=== PATIENT | female | born 1980 | race American Indian/Alaskan Native ===

== ENCOUNTER 2016-06-19 09:04 | Outpatient (CLI) | payer OTHER ==
--- NOTE | 2016-06-19 09:49 | Mammography Report ---
BILATERAL DIGITAL SCREENING MAMMOGRAM with CAD: 06/19/16 09:04:00 CLINICAL: 35-year-old for baseline screening. FINDINGS: The breasts are heterogeneously dense, which may obscure small masses. Two separate groups of segmental left upper outer calcifications require additional imaging.No associated mass or architectural distortion.The right breast is negative. IMPRESSION: Left upper outer calcifications requiring further workup. BI-RADS CATEGORY: 0 -- Additional Imaging Evaluation Required RECOMMENDATION: Recall for left mediolateral and spot magnification ML and CC views. ACR BI-RADS MAMMOGRAPHIC CODES: 0 = Needs additional imaging evaluation; 1 = Negative; 2 = Benign; 3 = Probably benign; 4 = Suspicious; 5 = Malignant; 6 = Known biopsy-proven malignancy COMMENT: 1. Dense breast tissue, i.e., adenosis, fibrocystic changes, etc., may obscure an underlying neoplasm. 2. Approximately 10% of cancers are not detected with mammography. 3. A negative mammography report should not delay biopsy if a clinically suspicious mass is present. COMMENT: Patient follow-up letters are generated via our [employer] application.
== END 2016-06-19 09:05 | disposition home or self-care (01) ==
LOC: SPVWC 09:04
PROVIDERS: ATTEND Family Medicine
DX: Z12.31 Encounter for screening mammogram for malignant neoplasm of breast (principal)
CPT/HCPCS: 77067; G0202

== ENCOUNTER 2016-07-11 14:06 | Outpatient (CLI) | payer OTHER ==
--- NOTE | 2016-07-11 14:54 | Mammography Report ---
LEFT DIGITAL DIAGNOSTIC MAMMOGRAM : 07/11/16 14:06:00 CLINICAL: Recalled for calcifications. COMPARISON:06/19/16 screening mammogram FINDINGS: ML and ML and CC magnification views were performed and demonstrate two groups of suspicious pleomorphic segmental calcifications in the upper-outer quadrant. The calcifications are by approximately 4 cm on the lateral view and the epicenters of the two groups are 6 cm apart. No associated mass or architectural distortion. IMPRESSION: 2 groups of suspicious pleomorphic segmental calcifications in the upper-outer quadrant of the left breast.Recommend stereotactic needle core biopsy of the left breast at 2 sites. I discussed the findings and the recommendation for stereotactic needle biopsy of the left breast at 2 sites with the patient at the time of the examination. BI-RADS CATEGORY: 4--Suspicious ACR BI-RADS MAMMOGRAPHIC CODES: 0 = Needs additional imaging evaluation; 1 = Negative; 2 = Benign; 3 = Probably benign; 4 = Suspicious; 5 = Malignant; 6 = Known biopsy-proven malignancy COMMENT: 1. Dense breast tissue, i.e., adenosis, fibrocystic changes, etc., may obscure an underlying neoplasm. 2. Approximately 10% of cancers are not detected with mammography. 3. A negative mammography report should not delay biopsy if a clinically suspicious mass is present. COMMENT: Patient follow-up letters are generated by our [employer] application.
== END 2016-07-11 14:07 | disposition home or self-care (01) ==
LOC: SPVWC 14:06
PROVIDERS: ATTEND Family Medicine
DX: R92.1 Mammographic calcification found on diagnostic imaging of breast (principal)
CPT/HCPCS: G0206-LT

== ENCOUNTER 2016-07-25 13:13 | Outpatient (CLI) | payer OTHER ==
--- NOTE | 2016-07-25 16:02 | Mammography Report ---
STEREOTACTIC VACUUM ASSISTED BIOPSY WITH CLIP PLACEMENT TWO SITES LEFT BREAST: 07/25/16 13:13:00 CLINICAL: 2 suspicious groups of upper outer calcifications. COMPARISON:07/11/16 FINDINGS: Consent for the procedure was obtained. The more superior and lateral group of calcificationswas targeted with stereotactic guidance. The skin was prepped with Betadine and anesthetized with 1% lidocaine. 2% lidocaine with epinephrine was injected for deeper anesthesia. 8 gauge Mammotome biopsy was performed from a CC from above approach through a small dermatotomy. Prefire and post-fire images demonstrated satisfactory positioning of the probe. Samples were obtained around the clock face. A specimen radiograph confirmed satisfactory sampling with removal of associate financial representative calcifications. A MammoMark 8 clip was placed at the biopsy site and the placement was confirmed with a radiograph. The more inferior group of calcificationswas targeted with stereotactic guidance. The skin was prepped with Betadine and anesthetized with 1% lidocaine. 2% lidocaine with epinephrine was injected for deeper anesthesia. 8 gauge Mammotome biopsy was performed from a CC from above approach through a small dermatotomy. Prefire and post-fire images demonstrated satisfactory positioning of the probe. Samples were obtained around the clock face. A specimen radiograph showed no calcifications. The probe was repositioned and additional samples were obtained. However, the second specimen also showed no calcifications. A Biomarc 8 clip was placed at the biopsy site and the placement was confirmed with a radiograph. Hemostasis was achieved with minimal pressure after removal of the probes. Sterile dressings were applied. The patient tolerated the procedure well and there were no apparent complications. A 2 view mammogram demonstrated concordant position of of the more superior and lateral clip. The second clip is approximately 2.5 cm superior to the second group of calcifications. IMPRESSION: Uncomplicated bilateral stereotactic biopsy with clip placement two sites left breast.The first sample site is concordant and calcifications were successfully removed. Discordance at the second sample site with no calcifications in the second sample.
--- NOTE | 2016-07-25 16:06 | Mammography Report ---
LEFT DIGITAL DIAGNOSTIC MAMMOGRAM: 07/25/16 13:13:00 CLINICAL: For clip placement immediately status post stereotactic biopsy at 2 sites. COMPARISON:07/11/16 FINDINGS: Biopsy clips are identified at these sites. Sample site 1 clip is concordant and is more lateral and superior.Sample site 2 clip is approximately 2.5 cm superior to the second group of calcifications. IMPRESSION: Concordant clip placement at sample site 1 a discordant sampling at site 2. BI-RADS CATEGORY: 4--Suspicious Pathology pending.
== END 2016-07-25 13:14 | disposition home or self-care (01) ==
LOC: SPVWC 13:13
PROVIDERS: ATTEND Family Medicine
DX: R92.1 Mammographic calcification found on diagnostic imaging of breast (principal)
CPT/HCPCS: 19081; 19082; A4648; G0206; 88305

== ENCOUNTER 2016-08-14 12:32 | Outpatient (CLI) | payer OTHER ==
--- NOTE | 2016-08-15 12:56 | Magnetic Resonance Report ---
BILATERAL BREAST MRI WITHOUT AND WITH CONTRAST: 08/14/16 12:32:00 CLINICAL: Newly diagnosed left breast cancer. 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 The second biopsy was negative but the sample site was discordant with the previous mammogram. COMPARISON:06/19/16 screening mammogram and 07/11/16 left diagnostic mammogram.. TECHNIQUE: Axial 1.0-mm T1 without, axial high resolution 2.0-mm T2 and axial 1.0-mm dynamic Vibrant high-resolution postcontrast T1 fat saturation sequences on a 1.5 Melinda magnet. The examination was performed with an 8 channel dedicated Sentinelle breast coil. Post processing with CAD and subtraction was performed on an [employer] workstation. 20 cc of Multihance was injected without incident for the contrast portion of the exam. Consent was obtained prior to the administration of the contrast. FINDINGS: Right: Moderate background parenchymal enhancement. No mass or suspicious enhancement. No suspicious lymph nodes. Left: Moderate background parenchymal enhancement. No mass or suspicious enhancement. No suspicious lymph nodes. 2 biopsy clips are identified in the upper outer quadrant. A 1.2 cm hematoma is identified at the second sample site. IMPRESSION: Negative study with no MRI evidence of tumor. RIGHT BI-RADS 1 -- Negative LEFT BI-RADS 6 -- Known Cancer
== END 2016-08-14 12:33 | disposition home or self-care (01) ==
LOC: SPVIMAG 12:32
PROVIDERS: ATTEND Surgery
DX: C50.912 Malignant neoplasm of unspecified site of left female breast (principal); N64.89 Other specified disorders of breast
CPT/HCPCS: 0159T; A9577; C8908; 77059

== ENCOUNTER 2016-08-29 09:12 | Day surgery (SDC) | payer OTHER ==
[~2016-08-29 09:12] MED LIST: MARCAINE 0.25% INFILTRATI ONE; WATER FOR IRRIG STERILE IR ONE
--- NOTE | 2016-08-29 09:51 | Anesthesia Consultation ---
Anesthesia Consult and Med Hx Date of service: 08/29/16 - Airway Anesthetic Teeth Evaluation: Good (some missing) ROM Head & Neck: Adequate Mental/Hyoid Distance: Adequate Mallampati Class: Class II Intubation Access Assessment: Probably Good - Pulmonary Exam CTA: Yes - Cardiac Exam Cardiac Exam: RRR - Pre-Operative Health Status ASA Pre-Surgery Classification: ASA2 Proposed Anesthetic Plan: General - Other Systems Hx Cancer: Yes (LEFT BREAST, DX: 07/2016)
--- NOTE | 2016-08-29 09:53 | Anesthesia Day of Surgery ---
Anesthesia Day of Surgery - Day of Surgery Patient Examined: Yes Patient H&P Reviewed: Yes Patient is NPO: Yes
[2016-08-29] MEDS ORDERED: NACL BACTERIOSTATIC INFILTRATI ONE (09:58)
[2016-08-29] MEDS ORDERED: VERSED IV NR (10:00)
[2016-08-29] MEDS ORDERED: ANCEF/STERILE WATER 2 GM/20 ML IV NR (10:00)
[2016-08-29] MEDS ORDERED: LACTATED RINGERS 1,000 ML IV SCH (10:00)
[2016-08-29] MEDS ORDERED: PEPCID PO NR (10:00)
[2016-08-29] MEDS ORDERED: XYLOCAINE 1% 20 mL ONE (10:20)
--- NOTE | 2016-08-29 10:32 | Short Stay Summary ---
Short Stay Documentation Date of service: 08/29/16 - History H&P: obtained from office - Allergies and Medications Current Medications: Allergies Iodinated Contrast Media - IV Dye Allergy (Verified 08/24/16 10:11) Hives, itching, swelling, throat closes Home Medications Medication Instructions Recorded Confirmed Last Taken Type Loratadine [Claritin] 10 mg PO DAILY 08/24/16 08/29/16 2 Weeks Ago History Excedrin 2 tab PO PRN PRN 08/29/16 08/29/16 08/26/16 History HYDROcodone/APAP 5-325 [[place] 1 each PO Q6HR PRN #30 tablet 08/29/16 Unknown Rx 5/325] Active Medications Cefazolin Sodium (Ancef/Sterile Water 2 Gm/20 Ml) 2 gm IV PREOP NR Stop: 08/29/16 23:59 Famotidine (Pepcid) 20 mg PO PREOP NR Stop: 08/29/16 23:59 Lactated Ringer's (Lactated Ringers) 1,000 mls @ 42 mls/hr IV DIRECT MARLYN Midazolam HCl (Versed) 2 mg IV PREOP NR Stop: 08/29/16 23:59 - Brief post op/procedure progress note Date of procedure: 08/29/16 Pre-op diagnosis: Left breast cancer of the upper outer quadrant and suspicious microcalcific Post-op diagnosis: same Procedure: Left breast needle localization partial mastectomy and left breast needle localization excisional biopsy Anesthesia: GETA Findings: Wire and clip present within partial mastectomy; suspicious microcalcifications present within excisional biopsy Surgeon: JASON WEATHERS Estimated blood loss: minimal Pathology: list (left partial mastecomy and excisional biopsy) Specimen disposition: to lab (left partial mastectomy and left excisional biopsy ) Condition: stable - Disposition Condition at discharge: Good Disposition: DISCHARGED TO HOME OR SELFCARE Short Stay Discharge Plan Activity: other (no heavy lifting) Diet: regular Wound: other (keep incision clean and dry; may shower in 24 hours; no baths, pools or lakes; do not rub or scrub incision) Follow up with: CHERYL ZAFAR MD [Primary Care Provider] - 7 Days JASON WEATHERS MD [Staff Physician] - 7 Days Prescriptions: HYDROcodone/APAP 5-325 [[place] 5/325] 1 each PO Q6HR PRN #30 tablet PRN Reason: Pain
--- NOTE | 2016-08-29 10:36 | Operative Report ---
Operative Report Operative Report: Date of procedure: 08/29/2016 Pre-operative diagnosis: Left breast cancer of the upper outer quadrant and suspicious microcalcifications of the upper outer quadrant Post-operative diagnosis: Same Procedure name(s): Complex left breast needle localization partial mastectomy and left breast needle localization excisional biopsy of suspicious microcalcifications of the upper outer quadrant Surgeon: Tiny Collins M.D. Anesthesia: Gen. Findings:Radiograph specimen of partial mastectomy with wire, clip and suspcious microcalcifications present; left breast excisional biopsy with wire and suspicious microcalcifications present Complications: None Disposition: PACU in good condition Indications for operative procedure: This is a 35-year-old premenopausal -[place] lady recently diagnosed with left breast cancer of the upper outer quadrant. Patient recently underwent stereotactic breast biopsy of suspicious area of upper outer quadrant left breast with microcalcifications; more superior and laterally findings of DCIS ER/WI positive and second biopsy site of calcifications lateral but more inferior with findings of benign microcalcifications. Radiology recommendations were to proceed with an excisional biopsy of second biopsy site of benign calcifications given concern for suspicion for malignancy. Patient was consented for the above procedure. Procedure in detail: Radiology placed wires prior to going back to the operating room, wire 1 localizing known breast cancer and wire 2 localizing suspicious microcalcifications. The patient was taken to the operating room and was laid supine. Gen. anesthesia was administered without any complications. The left breast was prepped and draped in the normal sterile operative fashion. Timeout was performed. Both left breast wires were identified of the left upper outer quadrant. A skin incision was first made with a 15 blade knife and dissection taken down to the subcutaneous tissues. First began with performing of the needle localization partial mastectomy of known breast cancer. The wire was removed from the skin. Then proceeded raising of superior flap followed by superior flap, inferior and medial flap. The area of concern was removed with the aid of the Bovie cautery and appropriately marked and sent to pathology and radiology. There was breast tissue caudally that was of concern with additional caudal margin obtained and appropriately marked and sent to pathology. Radiograph specimen with wire, clip and suspicious calcifications present. Began with the excisional biopsy of suspicious microcalcifications. Inferior flap was created with removal of the wire from the skin. Then proceed with the raising of the superior flap, lateral flap and medial flap. Area of concern was appropriately removed. Specimen was appropriately marked. Radiograph specimen with wire and suspicious microcalcifications present. Hemostasis was obtained with the aid of Bovie cautery. It was noted that after the excisional biopsy was performed there was no bridging of tissue of both excision sites and breast cavity was uniform given additional caudal margin taken from partial mastectomy (most caudal margin that was taken from the partial mastectomy would be the cephalad margin from the excisional biopsy). The procedure then began with oncoplastic reconstruction with mobilizing of the tissues to ensure a good cosmetic result. The Bovie cautery was used to mobilize the tissues and the subcutaneous tissues were then approximated and closed with interrupted 3-0 Vicryl and the skin was brought together and closed using a running 4-0 Monocryl with skin affix. The patient tolerated surgery very well and she was awakened from anesthesia without any complications and transported to PACU in good condition. :
[2016-08-29] MEDS ORDERED: DILAUDID ONE (10:53)
[2016-08-29] MEDS ORDERED: DIPRIVAN 10 MG/ML IV ONE (10:53)
[2016-08-29] MEDS ORDERED: DECADRON ONE (12:30)
[2016-08-29] MEDS ORDERED: ZOFRAN ONE (12:31)
--- NOTE | 2016-08-29 13:14 | Mammography Report ---
Left breast needle localization procedure x2. History: Biopsy proven breast cancer with 2 separate areas of microcalcifications. Procedure: 2 localization were performed. Mammographic guidance was used to place a hookwire site of 2 biopsy clips. The more anterior of the 2 clips was located 2.5 cm above the area of interest and therefore the needle placement was localized more inferior to the clip. Satisfactory localization was accomplished. The patient tolerated the procedure well clinically and was sent to the OR in satisfactory condition.
--- NOTE | 2016-08-29 13:49 | Mammography Report ---
Specimen radiograph. Findings: A single specimen radiograph confirms the presence of numerous microcalcifications adjacent to the hookwire.
--- NOTE | 2016-08-29 13:50 | Mammography Report ---
Specimen radiograph. Findings: The second of 2 specimen radiographs confirms the presence of numerous sales representative supervisor microcalcifications and a single biopsy clip.
[2016-08-29] MEDS ORDERED: XYLOCAINE MPF 2% ONE (14:01)
--- NOTE | 2016-08-29 15:06 | Post Anesthesia Evaluation ---
- Post Anesthesia Evaluation Patient Participated: Yes Airway Patent: Yes Stable Respiratory Function: Yes Nausea/Vomiting: No Temp > 96.8F: Yes Pain Manageable: Yes Adequeate Hydration: Yes Anesthesia Complications: No Block Receding Appropriately: Not Applicable Patient on Ventilator: No
[2016-08-29 19:13] VITALS: BP 102/60
== END 2016-08-29 16:37 | disposition home or self-care (01) ==
LOC: OR 09:12
PROVIDERS: ATTEND Surgery
DX: C50.412 Malignant neoplasm of upper-outer quadrant of left female breast (principal); Z80.3 Family history of malignant neoplasm of breast
CPT/HCPCS: 19281; 19282; 19301; 76098; 81025; 88307; J0690; J1100; J1170; J2250; J2405; J2704; J7120

== ENCOUNTER 2016-10-17 06:23 | Observation (INO) | payer OTHER ==
[2016-10-16 08:49] LABS: Hematocrit 38.4 % (30.3-42.9); Hemoglobin 12.6 gm/dl (10.1-14.3); Mean Corpuscular HGB Conc 33 % (30-34); Mean Corpuscular Hemoglobin 28 pg (28-32); Mean Corpuscular Volume 85 fl (79-97); Platelet Count 343 K/mm3 (140-440); Red Blood Count 4.52 M/mm3 (3.65-5.03); Red Cell Distribution Width 14.8 % (13.2-15.2); White Blood Count 4.7 K/mm3 (4.5-11.0)
[2016-10-16 08:55] LABS: Bilirubin,Urine NEG (Negative); Blood,Urine LG (Negative); Ketones,Urine NEG (Negative); Leukocyte Esterase,Urine NEG (Negative); Nitrite,Urine NEG (Negative); Protein,Urine <15 mg/dL mg/dL (Negative); Urobilinogen,Urine < 2.0 mg/dL (<2.0)
[2016-10-16 09:00] LABS: INR 0.95 (0.87-1.13)
[2016-10-16 09:01] LABS: Partial Thromboplastin Time 30.9 Sec. (24.2-36.6)
[2016-10-16 09:25] LABS: Alanine Aminotransferase 18 units/L (7-56); Albumin 3.9 g/dL (3.9-5); Albumin/Globulin Ratio 1.1 %; Alkaline Phosphatase 68 units/L (35-129); Anion Gap 17 mmol/L; BUN/Creatinine Ratio 17.14; Blood Urea Nitrogen 12 mg/dL (7-17); Calcium 8.9 mg/dL (8.4-10.2); Carbon Dioxide 24 mmol/L (22-30); Chloride 101.1 mmol/L (98-107); Glucose 98 mg/dL (65-100); Sodium 138 mmol/L (137-145); Total Protein 7.4 g/dL (6.3-8.2)
[~2016-10-17 06:23] MED LIST changes: -MARCAINE 0.25% INFILTRATI ONE; +NACL 0.9% 1000 ML 1,000 ML IV SCH; +NACL 0.9% 500 ML 500 ML IV ONE; +NEURONTIN PO NR; +PEPCID PO NR; +SUBLIMAZE IV ONE; +VERSED IV NR; -WATER FOR IRRIG STERILE IR ONE
[2016-10-17] MEDS ORDERED: ANCEF/STERILE WATER 2 GM/20 ML IV NR (06:35)
[2016-10-17] MEDS ORDERED: LOVENOX SUB-Q NR (06:36)
[2016-10-17] MEDS ORDERED: TRANSDERM-SCOP TD NR (06:37)
[2016-10-17] MEDS ORDERED: XYLOCAINE MPF 2% ONE (06:48)
[2016-10-17] MEDS ORDERED: ROBINUL ONE (06:49)
[2016-10-17] MEDS ORDERED: ZEMURON IV ONE (06:49)
[2016-10-17] MEDS ORDERED: DIPRIVAN 10 MG/ML IV ONE (06:50)
[2016-10-17] MEDS ORDERED: DILAUDID ONE (06:51)
[2016-10-17] MEDS ORDERED: NACL BACTERIOSTATIC INFILTRATI ONE (07:15)
--- NOTE | 2016-10-17 07:19 | Anesthesia Day of Surgery ---
Anesthesia Day of Surgery - Day of Surgery Patient Examined: Yes Patient H&P Reviewed: Yes Patient is NPO: Yes
--- NOTE | 2016-10-17 07:20 | Anesthesia Consultation ---
Anesthesia Consult and Med Hx - Airway Anesthetic Teeth Evaluation: Good ROM Head & Neck: Adequate Mental/Hyoid Distance: Adequate Mallampati Class: Class II Intubation Access Assessment: Probably Good - Pulmonary Exam CTA: Yes - Cardiac Exam Cardiac Exam: RRR - Pre-Operative Health Status ASA Pre-Surgery Classification: ASA2 Proposed Anesthetic Plan: General - Pulmonary Hx Smoking: No Hx Sleep Apnea: No - Central Nervous System Hx Psychiatric Problems: No - Other Systems Hx Cancer: Yes (LEFT BREAST, DX: 07/2016) Hx Obesity: Yes - Additional Comments Anesthesia Medical History Comments: NPO after MN. No prior anesthesia problems. BMI 41.7
[2016-10-17] MEDS ORDERED: BACITRACIN ONE (07:39)
[2016-10-17] MEDS ORDERED: NACL 0.9% 500 ML 500 ML ONE ×2 (07:39→07:49)
[2016-10-17] MEDS ORDERED: GARAMYCIN ONE (07:49)
[2016-10-17] MEDS ORDERED: ANCEF ONE (07:49)
[2016-10-17] MEDS ORDERED: ZOFRAN ONE (08:00)
[2016-10-17] MEDS ORDERED: ZOFRAN IV PRN ×2 (08:00→11:52)
[2016-10-17] MEDS ORDERED: NACL 0.9% 1000 ML 1,000 ML ONE (08:33)
[2016-10-17] MEDS ORDERED: ANCEF IV ONE (08:40)
[2016-10-17] MEDS ORDERED: BACITRACIN IR ONE (08:43)
[2016-10-17] MEDS ORDERED: NACL 0.9% 500 ML IRRIGATION ONE (08:44)
[2016-10-17] MEDS ORDERED: DECADRON ONE (08:51)
[2016-10-17] MEDS ORDERED: NACL 0.9% 1000 ML IV ONE (09:05)
--- NOTE | 2016-10-17 11:18 | Operative Report ---
Operative Report Operative Report: Date of procedure:October 17, 2016 Pre-operative diagnosis: Left breast cancer of the upper outer quadrant Post-operative diagnosis:Same Procedure name(s): Left skin sparing total mastectomy and sentinel lymph node biopsy Surgeon: Tiny Collins MD Glass Worker: Mrs. Krueger Anesthesia: General Findings: Prior left breast partial mastectomy incision present with scar, 1 SLN and negative for malignancy on frozen section Complications: None EBL: Minimal Disposition: Placement of tissue autism specialist by Dr. 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 Patient underwent a left partial mastectomy and left needle localization excisional biopsy in August with findings of extensive ductal carcinoma in situ with positive margins and recommendation for mastectomy. Patient wished to proceed with the above procedure. Procedure in detail: The patient was taken to the operating room and was laid supine. General anesthesia was administred without any complications. The left nipple was injected with radioisotope. The left breast and axilla were prepped and draped in the normal sterile operative fashion. Gamma probe inserted into the axilla with area of sentinel lymph node identified and appropriately marked. A periareolar skin incision was made for a skin sparing total mastectomy with a 15 blade knife with dissection taken down to the subcutaneous tissues. First began with raising of the superior flap to the level of the clavicle taken down posteriorly to the pectoralis muscle, followed by raising of the medial flap to the level of the sternum taken down posteriorly to the pectoralis muscle. [place] lymph node was identified using the gamma probe and lymph node, adequate exposure was not obtained through the breast incision and a separate skin incision was made in the axilla with a 15 blade knife. Axillary fascia was opened and gamma probe inserted into the axilla, sentinel lymph node identified and was appropriate dissected free. Frozen section with findings negative for malignancy. Additional counts were less than 10% of the highest count. Continued with the raising of the lateral flap to latissimus dorsi muscle posteriorly to the pectoralis muscle followed by raising of the inferior flap to the level of the inframammary fold taken down posteriorly to the pectoralis muscle. The breast was then removed from the pectoralis muscle without incident. A prior breast surgical incisions were identified of the upper outer quadrant. Hemostasis was obtained. Chest wall cavity was irrigated and suctioned. Dr. Mason then proceeded with temporary tissue autism specialist placement.
[2016-10-17] MEDS ORDERED: SODIUM CHLORIDE FLUSH SYRINGE 10 ML IV PRN (11:52)
[2016-10-17] MEDS ORDERED: TYLENOL PO PRN (11:52)
[2016-10-17] MEDS ORDERED: REGLAN PO PRN (11:52)
[2016-10-17] MEDS ORDERED: BENADRYL PO PRN (11:52)
[2016-10-17] MEDS ORDERED: LACTATED RINGERS 1,000 ML IV SCH (12:00)
[2016-10-17] MEDS ORDERED: PERCOCET 5/325 PO PRN (12:01)
--- NOTE | 2016-10-17 12:03 | Operative Report ---
Operative Report Operative Report: DATE OF : 1980 DATE OF PROCEDURE: 10/17/2016 PREOPERATIVE DIAGNOSIS: Acquired Breast Deformity POSTOPERATIVE DIAGNOSIS: Acquired Breast Deformity PROCEDURE PERFORMED: 1. Immediate left breast reconstruction with tissue assistant plant control operator, preparation for second stage 2. Local tissue rearrangement SURGEON: Negin Mason MD RULES EXAMINER: Freddy Urena MD ANESTHESIA: General ESTIMATED BLOOD LOSS: Less than 20 mL COMPLICATIONS: None DRAINS: 15 Malagasy left breast SPECIMENS: None INDICATIONS FOR SURGERY: The patient is a 35 year old female with recent diagnosis of extensive. She had undergo previous lumpectomy that showed extensive disease. She elected to have left unilateral mastectomy with autologous tissue reconstruction. Today is her first stage procedure where we will place a tissue assistant plant control operator after mastectomy in order to preserve the space and skin. Her second stage will be in the next several days where we will proceed with DAISHA flap reconstruction. We will be able to assess the mastectomy skin vascularity in the mean time as well as ascertain her surgical margins. Informed consent was explained to the patient that risks include but are not limited to bleeding, infection, seroma, hematoma, wound deshicence. She understood and wished to proceed. DESCRIPTION OF THE PROCEDURE: The patient was marked in the preop holding area with a circumareolar incision. She was then given lovenox and taken back to the operating room. She was placed supine on the table and general anesthesia was induced. After anesthesia was induced she was prepped and draped in the usual sterile fashion. Time out was then performed. Patient received IV antibiotics prior to surgery. Dr. Collins proceeded with the mastectomy portion of the case. After she was finished, we scrubbed in for the reconstructive portion. I selected a [place] CPX4 550cc tissue assistant plant control operator. This was prepped on the back table and irrigated with triple antibiotic irrigation. I achieved meticulous hemostasis in the breast pocket using bovie cautery. Then the pocket was irrigated with triple antibiotic irrigation. I then filled the assistant plant control operator to 540cc. The assistant plant control operator was placed into the breast pocket. It was sutured in placed using 2-0 vicryls along the implant tabs. I then rearranged the mastectomy skin and back cuts were performed in order to achieve tensionless closure as well as to best preserve the circumareolar incision in order to achieve the best aesthetic outcome for her second stage surgery next week. The total area of rearrangement was 30 cm2. A 15 Malagasy round silicone drain was placed into the left breast. This was sutured in place using a 2-0 silk. Then the incision was closed with interrupted buried 3-0 monocryl as well as running 3-0 monocryl for the subcuticular layer. All sponge, needle counts were correct at the end of the case. Patient tolerated the procedure well. She was straight cathed at the end of the procedure prior to extubation. Patient was extubated and brought to the recovery unit in stable condition.
[2016-10-17] MEDS: DILAUDID IV PRN ×2 (12:07→12:50)
--- NOTE | 2016-10-17 12:09 | Discharge Summary ---
Providers - Providers Date of discharge: 10/18/16 Attending physician: JASON Matias Primary care physician: CHERYL ZAFAR Hospitalization Reason for admission: Post operative management Condition: Good Procedures: Left mastectomy with immediate tissue paymaster of purses reconstruction Hospital course: Uneventful Disposition: DC-01 TO HOME OR SELFCARE - Discharge Diagnoses (1) Breast cancer Status: Acute Qualifiers: Breast location: B Estrogen receptor status: E Patient sex: P Laterality: L Core Measure Documentation - Palliative Care Palliative Care/ Comfort Measures: Not Applicable - Core Measures Any of the following diagnoses?: none - VTE Discharge Requirements Contraindication No Overlap Therapy order at DC: Not Indicated - Acute MD Discharge Requirements Aspirin at discharge: No Reason for no aspirin on DC: Surgical contraindication POP/ARB for LVSD if EF <40%: Not Applicable Beta [place] at discharge: No Reason for no beta [place] on DC: Medical contraindication Statin for LDL = or >100 mg/dl on DC: Not Applicable Reason for no statin on DC: Surgical contraindication - Heart Failure Discharge Requirements POP/ARB for LVSD if EF <40%: Not Applicable - Stroke Discharge Requirements Statin for LDL = or >70 mg/dl on DC: Not Applicable Exam - Constitutional Vitals: Temp Pulse Resp BP Pulse Ox 98.5 F 71 18 108/72 98 10/17/16 07:54 10/17/16 07:54 10/17/16 07:54 10/17/16 07:54 10/17/16 07:54 General appearance: Present: no acute distress, well-nourished - EENT Eyes: Present: PERRL ENT: hearing intact - Neck Neck: Present: supple, normal ROM - Respiratory Respiratory effort: normal - Cardiovascular Rhythm: regular Heart Sounds: Present: S1 & S2 - Extremities Extremities: no ischemia, pulses intact - Abdominal General gastrointestinal: Present: soft, non-tender, non-distended - Integumentary Integumentary: Present: clear, warm - Musculoskeletal Musculoskeletal: strength equal bilaterally - Psychiatric Psychiatric: appropriate mood/affect - Neurologic Neurologic: CNII-XII intact, moves all extremities Plan Activity: other (No heavy lifting or strenous activities) Weight Bearing Status: Full Weight Bearing Diet: regular Wound: keep clean and dry Special Instructions: no heavy lifting Follow up with: CHERYL ZAFAR MD [Primary Care Provider] - 6 Weeks PATI MATIAS MD [Staff Physician] - 10/22/16 Prescriptions: Docusate Sodium [Colace CAP] 100 mg PO BID #60 capsule oxyCODONE /ACETAMINOPHEN [Percocet 5/325 mg] 1 tab PO Q4H PRN #50 tablet PRN Reason: Pain, Moderate (4-6)
--- NOTE | 2016-10-17 13:32 | Post Anesthesia Evaluation ---
- Post Anesthesia Evaluation Patient Participated: Yes Airway Patent: Yes Stable Respiratory Function: Yes Nausea/Vomiting: No Temp > 96.8F: Yes Pain Manageable: Yes Adequeate Hydration: Yes Anesthesia Complications: No
--- NOTE | 2016-10-17 14:35 | Admit Criteria Form ---
Admission Criteria Documentation: AMBULATORY SURGERY EXCEPTION CRITERIA Ambulatory Surgery Exception Criteria ( Place 'X' for any and all applicable criteria): Surgery or procedure performed on ambulatory basis may require inpatient stay for[A] ANY ONE of the following(1)(2)(3)(4)(5)(6)(7)(8)(9): [X] I. A preoperative situation, condition, or finding that warrants inpatient stay as indicated by ANY ONE of the following: [X] a) Inpatient care needed because of severity of a disease or condition rather than the surgery (eg, severe cardiac or respiratory disease, severe infection) (15) (16 ) (17) (18) [] b) Emergent procedure (eg, angioplasty for acute ischemia)(19) [] c) Complex surgical approach or situation as indicated by ANY ONE of the following(3): [] i) Open approach needed instead of usual endoscopic, transcatheter, or other less invasive procedure [] ii) Difficult approach because of previous operation [] iii) Airway monitoring required after open neck procedures(20)(21) [] iv) Large mass requiring unusually extensive dissection [] v) Additional complicating feature requiring inpatient care (eg, drain management)(22(23): [] d) Major surgery in a pt with high anesthetic risk as indicated by ANY ONE of the following (2)(3)(5)(7)(8): [] i) ASA risk class III or higher (severe systemic disease impairing function) [D] [] ii) Advanced age (eg, older than 85 years)(14)(24) [] iii) Symptomatic heart failure(25) [] iv) Symptomatic asthma or COPD(8)(21) [] v) Morbid obesity with hemodynamic or respiratory problems(20)( 21)(26)(27) [] vi) Obstructive sleep apnea(20)(21) [] vii) Former premature infants who are younger than 60 weeks [] viii) High risk for severe postoperative abnormalities (eg, severe postoperative hypocalcemia after parathyroidectomy for severe hyperparathyroidism)(27)( 28) [] ix) Unstable angina(25) [] e) Drug-related risk requiring inpatient stay as indicated by ANY ONE of the following(5)(10)(14)(32)(33) [] i) Procedure requires discontinuing drugs or other therapy (eg , antiarrhythmic medication, antiseizure medication), which necessitates inpatient observation or treatment.(18)(31) [] ii) Major surgery and high risk drug use as indicated by ANY ONE of the following: [] 1) Active abuse of cocaine or similar drug [] 2) Monoamine oxidase inhibitor use [] 3) Other drug identified as posing risk [] f) Inadequate outpatient care situation as indicated by ANY ONE of the following(5)(10)(14)(32)(33) [] i) Patient lives remote from medical facility and procedure has urgent complication potential, and temporary nearby residence cannot be arranged [] ii) Patient will have postprocedure incapacitation and inadequate assistance at home, or alternative level of care cannot be arranged. [] iii) Patient will have long general anesthesia or procedure side effect resolution time, and competent person to stay with patient on first postoperative night at home or alternative level of care cannot be arranged. []iv) Other inadequate outpatient situation that cannot be handled by other means [] II. A perioperative event, condition, or finding that warrants inpatient stay as indicated by ANY ONE of the following (1)(2)(3): [] a) Inadequate physiologic recovery: cardiovascular, respiratory, or hemodynamic status not normal or near preoperative baseline(18) [] b) Hemodynamic instability [] c) Patient not alert with near normal or baseline mental status [] d) Temperature not normal or as expected and not appropriate for outpatient treatment of condition [] e) Ambulatory or appropriate activity level status not yet achieved post procedure [E](34)(35)(36) [] f) Operative site not appropriate (eg, unexpected or excessive drainage or bleeding) [] g) Postoperative effects not resolved or adequately managed (eg, significant pain or vomiting not appropriate for outpatient or next level of care)(10)(12) [] h) Complicating features requiring inpatient care as indicated by ANY ONE of the following(37): [] i) Severe complications of procedure (eg, bowel injury, airway compromise, vascular injury,severe hemorrhage) [] ii) Extensive (eg, dissection far beyond usual scope of procedure ) or prolonged (eg, 120 minutes beyond usual) surgery needed requiring inpatient postoperative care [] iii) Conversion to an open or complex procedure that requires inpatient care (eg, open vs laparoscopic cholecystectomy, abdominal vs vaginal hysterectomy)(38) [] iv) Comorbid condition or test result identified during or post procedure that requires inpatient care (7) [] v) Malignant hyperthermia(30) [] vi) Other complicating feature requiring inpatient care(22)(23) Inpatient stay may be needed until ALL of the following are present (1)(2)(3)(4) (5)(6)(10)(14)(33)(40): []a) Physiologic recovery: cardiovascular, respiratory, and hemodynamic status normal or near preoperative baseline []b) Hemodynamic stability []c) Patient alert, with near normal or baseline mental status []d) Temperature appropriate: patient afebrile or temperature appropriate for outpt treatment of condition []e) Activity level appropriate: ambulatory or appropriate activity level post procedure []f) Operative site appropriate as indicated by ALL of the following: []i) Site dry or with expected drainage []ii) Any blood noted is as expected for procedure. []g) Postoperative effects resolved or managed as indicated by ALL of the following: []i) Pain management appropriate for outpatient (or next level of) care(10) []ii) Minimal nausea and vomiting: if present, successfully treated with oral medication(12) []iii) Headache, dizziness, or drowsiness (if present) are mild. []h) Voiding status acceptable as indicated by ANY ONE of the following: []i) Voiding spontaneously []ii) No voiding but instructions given for follow-up in 6 to 8 hours []iii) Urinary catheter in place, and instructions given for follow-up []i) Complicating features requiring inpatient care manageable at a lower level of care(37) []j) Comorbid conditions manageable at a lower level of care(37) The original [employer] content created by [employer] has been revised. The portions of the content which have been revised are identified through the use of italic text or in bold, and [id number] has neither reviewed nor approved the modified material. All other unmodified content is copyright [employer]. Please see references footnoted in the original [employer] edition 2016 Admission Criteria Met: Yes
[2016-10-17] MEDS: PERCOCET 5/325 PO PRN (16:00)
[2016-10-17] MEDS: MORPHINE IV PRN ×2 (16:20→21:25)
[2016-10-17] MEDS: ANCEF/NS 1 GM/50 ML 1 GM/50 ML BAG IV SCH ×2 (16:30→21:19)
[2016-10-17] MEDS: COLACE PO SCH (22:00)
[2016-10-18] MEDS: PERCOCET 5/325 PO PRN ×3 (01:02→09:47)
[2016-10-18] MEDS: COLACE PO SCH (01:03)
[2016-10-18] MEDS: ANCEF/NS 1 GM/50 ML 1 GM/50 ML BAG IV SCH (05:34)
[2016-10-18] MEDS ORDERED: LOVENOX SUB-Q SCH (10:00)
[2016-10-18 11:51] VITALS: BP 102/59
--- NOTE | 2016-10-18 22:30 | Progress Note ---
Assessment and Plan This is a 35 year old premenopausal lady with multicentric left breast cancer of the upper outer quadrant POD #1 left skin sparing total mastectomy and immediate tissue stone spreader operator placement. No acute events overnight and pain well controlled. 1. Left breast mound incision healing well, skin well perfused. 2. ADRIENNE drain education. 3. OOB to hallway. 4. Pain well controlled. 5. D/C planning for today. Subjective Date of service: 10/18/16 Principal diagnosis: Multicentric left breast cancer Interval history: This is a 35 year old premenopausal lady with multicentric left breast cancer of the upper outer quadrant POD #1 left skin sparing total mastectomy and immediate tissue stone spreader operator placement. Objective - Constitutional General appearance: Present: no acute distress - EENT Eyes: PERRL, EOM intact ENT: hearing intact, clear oral mucosa, dentition normal Ears: bilateral: normal - Neck Neck: supple, normal ROM - Respiratory Respiratory effort: normal Respiratory: bilateral: CTA - Breasts Breasts: other (left breast mound with tissue stone spreader operator in place, incisions clean , dry and intact and healing well; skin well perfused; left axillary bruising noted; ADRIENNE drain to bulb suction) - Cardiovascular Rhythm: regular Extremities: no ischemia, pulses intact, pulses symmetrical, No edema, normal temperature, normal color, Full ROM - Gastrointestinal General gastrointestinal: Present: soft, non-tender, non-distended Rectal Exam: deferred - Genitourinary Female genitourinary: deferred - Integumentary Integumentary: clear, warm, dry - Musculoskeletal Musculoskeletal: strength equal bilaterally - Neurologic Neurologic: CNII-XII intact, moves all extremities - Psychiatric Psychiatric: appropriate mood/affect, intact judgment & insight, memory intact, cooperative - Labs CBC & Chem 7: 10/16/16 08:15 10/16/16 08:15 Labs: Abnormal lab results 10/16/16 Range/Units 08:15 Crossmatch See Detail
== END 2016-10-18 10:00 | disposition home or self-care (01) ==
LOC: OR 06:23 → OB 11:52
PROVIDERS: ADMIT Plastic Surgery; ATTEND Plastic Surgery
DX: C50.412 Malignant neoplasm of upper-outer quadrant of left female breast (principal); N64.89 Other specified disorders of breast; E66.9 Obesity, unspecified; Z80.3 Family history of malignant neoplasm of breast
CPT/HCPCS: 19301; 19357; 36415; 38525; 78800; 80053; 81001; 84703; 85027; 85610; 85730; 86850; 86900; 86901; 86920; 88305; 88307; 88331; 88342; 96365; 96372; 96375; 96376; A9541; C1789; G0378; J0690; J1100; J1170; J1580; J1650; J2250; J2270; J2405; J2704; J7030; J7040; 88309; 88333; J7120

== ENCOUNTER 2017-06-25 08:39 | Outpatient (CLI) | payer OTHER ==
--- NOTE | 2017-06-25 09:06 | Mammography Report ---
RIGHT DIGITAL DIAGNOSTIC MAMMOGRAM with CAD: 06/25/17 08:39:00 CLINICAL: History of left breast cancer status post left mastectomy. COMPARISON:06/19/16 FINDINGS: The breast is heterogeneously dense, which may obscure small masses.No mass, architectural distortion or suspicious calcifications. IMPRESSION: Negative mammogram. BI-RADS CATEGORY: 1 - - Negative RECOMMENDATION: Routine mammographic screening in one year. ACR BI-RADS MAMMOGRAPHIC CODES: 0 = Needs additional imaging evaluation; 1 = Negative; 2 = Benign; 3 = Probably benign; 4 = Suspicious; 5 = Malignant; 6 = Known biopsy-proven malignancy COMMENT: 1. Dense breast tissue, i.e., adenosis, fibrocystic changes, etc., may obscure an underlying neoplasm. 2. Approximately 10% of cancers are not detected with mammography. 3. A negative mammography report should not delay biopsy if a clinically suspicious mass is present. COMMENT: Patient follow-up letters are generated by our [employer] application.
== END 2017-06-25 08:40 | disposition home or self-care (01) ==
LOC: SPVWC 08:39
PROVIDERS: ATTEND Surgery
DX: R92.8 Other abnormal and inconclusive findings on diagnostic imaging of breast (principal); Z85.3 Personal history of malignant neoplasm of breast; Z90.12 Acquired absence of left breast and nipple

== ENCOUNTER 2018-06-18 08:14 | Outpatient (CLI) | payer OTHER ==
--- NOTE | 2018-06-18 08:48 | Mammography Report ---
BILATERAL DIGITAL SCREENING MAMMOGRAM WITH CAD: 06/18/18 00:00:00 CLINICAL: Routine screening.Breast cancer survivor status post left mastectomy and TRAM reconstruction . COMPARISON:06/25/17 right mammogram FINDINGS: The right breast is mostly fatty with a few residual fibroglandular densities No mass, architectural distortion or suspicious calcifications. Normal appearance of the left TRAM reconstruction. IMPRESSION: No mammographic evidence of malignancy. BI-RADS CATEGORY: 2 -- Benign RECOMMENDATION: Routine mammographic screening in one year. COMMENT: Patient follow-up letters are generated by our [employer] application.
== END 2018-06-18 08:15 | disposition home or self-care (01) ==
LOC: SPVWC 08:14
PROVIDERS: ATTEND Surgery
DX: Z12.31 Encounter for screening mammogram for malignant neoplasm of breast (principal); E66.9 Obesity, unspecified; Z90.12 Acquired absence of left breast and nipple; Z90.89 Acquired absence of other organs
CPT/HCPCS: 77067

== ENCOUNTER 2020-09-26 08:08 | Outpatient (CLI) | payer BC ==
--- NOTE | 2020-09-26 11:54 | Mammography Report ---
DIGITAL SCREENING MAMMOGRAM WITH CAD WITH TOMOSYNTHESIS, 09/26/2020 CLINICAL INFORMATION / INDICATION: Routine screening mammography. The patient has a personal history of left breast cancer treated with lumpectomy. TECHNIQUE: Digital bilateral 2D and 3D mammography was obtained in the craniocaudal and mediolateral oblique projections. This examination was interpreted with the benefit of Computer-Aided Detection a nalysis. COMPARISON: 09/22/2020, 06/18/2018 FINDINGS: Breast Density: There are scattered areas of fibroglandular density. No dominant mass, suspicious calcifications, or architectural distortion in either breast. Postlumpectomy changes are again noted in the upper outer left breast and appear stable. There has be en no significant interval change. IMPRESSION: No mammographic evidence of malignancy. Follow up recommendation: Routine yearly BI-RADS Category 2: Benign. A "normal" or negative report should not discourage follow up or biopsy of a clinically significant f inding. A written summary of these findings will be mailed to the patient. The patient will be entered into a mammography reporting system which will generate a reminder letter for the patient's next appointmen t at the appropriate interval. The [employer] recommends yearly mammograms starting at age 40 and continuing as l levi as a woman is in good health. Breast MRI is recommended for women with an approximate 20-25% or greater lifetime risk of breast cancer, including women with a strong family history of breast or ova dora cancer or who have been treated for Hodgkin's disease. Signer Name: Cristiane Dias MD Signed: 09/26/2020 11:50 AM Workstation Name: [id number]
== END 2020-09-26 08:09 | disposition home or self-care (01) ==
LOC: SPVWC 08:08
PROVIDERS: ATTEND Surgery
DX: Z12.31 Encounter for screening mammogram for malignant neoplasm of breast (principal); N64.89 Other specified disorders of breast
CPT/HCPCS: 77063; 77067